=== PATIENT | female | born 1990 | race Caucasian/White ===

== ENCOUNTER 2024-06-21 07:27 | Inpatient (IN) ==
[2024-06-21] MEDS ORDERED: LIDOCAINE 1% LOCAL 20 ML VIAL INFIL PRN (07:29)
[2024-06-21] MEDS ORDERED: VANCOMYCIN HCL 1,000 MG/270 ML BAG IV STA (07:29)
[2024-06-21] MEDS ORDERED: VANCOMYCIN CONSULT ACTIVE PRN (07:29)
[2024-06-21] MEDS ORDERED: Patient's HEIGHT &/or WEIGHT Needed SCH (08:15)
[2024-06-21] MEDS: LACTATED RINGER'S 1,000 ML IV PRN (08:17)
[2024-06-21 08:21] LABS: Hematocrit (blood only) 34.6 % (37.0-47.0); Hemoglobin 11.4 g/dl (12.0-16.0); Mean Corpuscular Hemoglobin 27.7 pg (25.0-34.0); Mean Corpuscular Hgb Conc 32.9 g/dL (32.0-36.0); Mean Platelet Volume 9.9 fL (9.4-12.4); Platelet Count 300 K/uL (130-400); RDW Standard Deviation 42.8 fL (36.4-46.3); Red Blood Count 4.12 M/uL (4.20-5.40); White Blood Count 8.61 K/ul (4.8-10.8)
[2024-06-21] MEDS: OXYTOCIN 30 UNITS/NSS 30 UNITS/500 ML BAG IV PRN (08:30)
--- NOTE | 2024-06-21 09:24 | History & Physical Report ---
Date of Service June 21, 2024 Assessment & Plan (1) Supervision of normal intrauterine in multigravida: Plan: Intrauterine at 39 0/7 weeks for induction electively. Prior injections have been done because of preeclampsia. Blood pressures have been normal this . Will begin Pitocin per labor and delivery protocol for induction. Vancomycin will be used for GBS prophylaxis. Epidural and requested. Anticipate vaginal . Admission and Anticipated Discharge Date Admission Date: June 21, 2024 History of Present Illness Primary Care Provider: NO PCP Patient is a 33-year-old 3 para 2-0-0-2 female EDC of 06/28/2024 who presents at 39-0/7 weeks for induction of labor. is uncomplicated. Both prior pregnancies were induced at 39 weeks. GBS is positive. Allergies Allergy/AdvReac Type Severity Reaction Status Date / Time amoxicillin Allergy Intermediate Hives Verified 06/18/24 13:51 cephalexin [From Keflex] Allergy Verified 06/18/24 13:51 Penicillins Allergy Verified 06/18/24 13:51 Home Medications Medication Instructions Recorded Confirmed Type PNV [id number] PO 11/19/23 06/18/24 History [ Gummies] Patient History Medical History PIH ( induced hypertension) Anxiety History of chicken pox Surgical History S/P wisdom tooth extraction Family History Father Hypertension Denies family history of Ovarian cancer Breast cancer Colorectal cancer Social History Smoking Status: Never smoker Do You Dip or Chew Tobacco: No; Hx Alcohol Use: No Hx Substance Use: No Beliefs That Will Affect Care: None marital status: marital status details: Bruce Wright(29) [phone] Current Living Situation: Family Current Living Situation Comment: lives with spouse, 2 children, cats-spouse changing litter current occupational status: employed current occupation: teacher-[employer] Other Information That Helps Us Care for You: No Feels Safe at Home: Yes Safety Concerns: Feels Safe At This Time Assistive Devices: None Review of Systems All systems reviewed & are unremarkable except as noted in HPI & below Physical Exam Constitutional: WD/WN, vitals as above Psychiatric: A+Ox3, euthymic affect Genitourinary: OB Exam Abdomen: + vertex, + estimated weight (7-8 pounds) and + irregular contractions Manual OB Exam: + cervical dilation fingertip, + cervical effacement 60% (soft) and + station -2 OB Exam Monitor Tracing: + external FHT monitor used, + external uterine monitor used, + category I and + normal FHT variability After verbal consent was obtained, a speculum was placed vaginally and the cervix visualized. A Serna catheter was then inserted into the cervix to the level of the internal os. 40 cc of water was then instilled into the balloon. The speculum was then removed and the catheter secured to her left thigh under traction. Patient tolerated procedure well. Results & Data Vital Signs (Past 12 Hours) Vital Signs Temp Pulse Resp BP 06/21/24 07:38 99.0 F 18 06/21/24 07:34 99.0 F 118 H 18 137/80 Coding Level of Care Code 16361 INT INP/OBS CARE 1/40MIN Diagnoses Supervision of normal intrauterine in multigravida Z34.80 CPT Codes Misx Procedure Codes - 27120 Placement of cervical dilator: 76971 Placement of cervical dilator ([id number])
[2024-06-21] MEDS: VANCOMYCIN HCL 1,500 MG in SODIUM CHLORIDE 0.9% 500 ML IV STA (09:26)
[2024-06-21] MEDS ORDERED: Nursing to Pharmacy Communication SCH (12:15)
[2024-06-21] MEDS: fentANYL 2 MCG/ML BUPIVacaine 0.125%-NSS 100ML BAG ONE (17:33)
[2024-06-21] MEDS ORDERED: NALOXONE HCL 1 MG in SODIUM CHLORIDE 0.9% 1,000 ML IV PRN (17:38)
[2024-06-21] MEDS: SODIUM CHLORIDE 0.9% PF INJ 10 ML VIAL ONE (17:38)
[2024-06-21] MEDS ORDERED: BUPIVACAINE 0.25% PF 30 ML VIAL EPI PRN (17:38)
[2024-06-21] MEDS ORDERED: LIDOCAINE 2% MPF LOCAL 5 ML VIAL EPI PRN (17:38)
[2024-06-21] MEDS ORDERED: fentaNYL citrate PF 100 MCG/2 ML VIAL EPI PRN (17:38)
[2024-06-21] MEDS ORDERED: SODIUM CHLORIDE 0.9% PF INJ 10 ML VIAL EPI PRN (17:38)
[2024-06-21] MEDS ORDERED: ROPIVACAINE 0.5% PF 5 MG/ML 20 ML VIAL EPI PRN (17:38)
[2024-06-21] MEDS ORDERED: NALBUPHINE HCL INJ 10 MG/ML AMP IV PRN (17:38)
[2024-06-21] MEDS: LIDOCAINE 2%/EPINEPHRINE 1:200,000 20 ML PF ONE (17:38)
[2024-06-21] MEDS ORDERED: ONDANSETRON INJ 2 MG/ML 2 ML VIAL IV PRN (17:38)
[2024-06-21] MEDS ORDERED: NALOXONE HCL 0.4 MG/1 ML VIAL/CARP IV PRN (17:38)
[2024-06-21] MEDS: BUPIVACAINE 0.25% PF 30 ML VIAL ONE (17:38)
[2024-06-21] MEDS ORDERED: PROMETHAZINE 6.25 MG/50.25 ML BAG IV PRN (17:38)
[2024-06-21] MEDS ORDERED: ePHEDrine sulfate 50 MG/ML AMP IV PRN (17:38)
[2024-06-21] MEDS: fentaNYL citrate PF 100 MCG/2 ML VIAL ONE (17:39)
[2024-06-21] MEDS: BUPIVACAINE 0.25% PF 30 ML VIAL EPI STA (17:48)
[2024-06-21] MEDS: fentaNYL citrate PF 100 MCG/2 ML VIAL EPI STA (17:48)
[2024-06-21] MEDS: LIDOCAINE 2%/EPINEPHRINE 1:200,000 20 ML PF EPI STA (17:48)
[2024-06-21] MEDS: SODIUM CHLORIDE 0.9% PF INJ 10 ML VIAL EPI STA (17:48)
[2024-06-21] MEDS ORDERED: VANCOMYCIN HCL 1,000 MG/270 ML BAG IV PRN (18:29)
[2024-06-21] MEDS ORDERED: VANCOMYCIN HCL 1,250 MG in SODIUM CHLORIDE 0.9% 250 ML IV SCH (18:30)
[2024-06-21] MEDS: ePHEDrine sulfate 50 MG/ML AMP ONE (21:27)
[2024-06-21] MEDS: VANCOMYCIN HCL 1,250 MG in SODIUM CHLORIDE 0.9% 250 ML IV PRN (21:40)
[2024-06-22] MEDS: fentANYL 2 MCG/ML BUPIVacaine 0.125%-NSS 100ML BAG EPI PRN (00:42)
[2024-06-22] MEDS: diphenhydrAMINE 50 MG/ML VIAL IV PRN (00:45)
[2024-06-22] MEDS: OXYTOCIN 30 UNITS/NSS 30 UNITS/500 ML BAG IV PRN (03:25)
[2024-06-22] MEDS ORDERED: OXYTOCIN 30 UNITS/NSS 30 UNITS/500 ML BAG IV PRN (03:28)
[2024-06-22] MEDS ORDERED: oxyCODONE/ACETAMINOPHEN 5mg/325mg TAB PO PRN (03:28)
[2024-06-22] MEDS ORDERED: HYDROCORTISONE ACETATE 25 MG SUPP PR PRN (03:28)
--- NOTE | 2024-06-22 03:32 | Delivery Summary ---
Vaginal Delivery Summary Date of Service June 22, 2024 Vaginal Delivery Summary and 1st Degree LAC Patient is a 33-year-old 3 para 2-0-0-2 female who presented at 39 weeks for elective induction of labor. The induction was begun with a cervical balloon and Pitocin per labor and delivery protocol. After the balloon was expelled, membranes were ruptured for clear fluid. She received effective epidural analgesia. She progressed to full dilation and pushed effectively over intact perineum for delivery of a viable female . After the head was delivered the left hand then delivered which was posterior. The infant was then delivered without maternal effort. She was placed on the mother's abdomen for further attention and drying. She was vigorous crying and moving all 4 limbs. After 1 minute, the cord was clamped and cut. After cord blood was obtained, th e placenta was expressed intact with a three-vessel cord. bleeding was controlled with dilute Pitocin and fundal massage. A first-degree perineal laceration was repaired with 3-0 chromic in usual fashion. QBL was 400 mL. Mother and were doing well after delivery. [facility] [place] Vaginal Delivery Charge Delivery Type Details: and 1st Degree LAC
[2024-06-22] MEDS: IBUPROFEN 600 MG TAB PO PRN (03:56)
[2024-06-22] MEDS: DIPHTHER/TETAN/PERTUS Vaccine (Tdap, Adol/Adult) 0.5mL IM ONE (05:04)
--- NOTE | 2024-06-22 05:54 | Anesthesia Procedure Note ---
Date of Service June 22, 2024 Anesthesia Post Epidural Note Vital Signs Vital Signs: Temp Pulse Resp BP Pulse Ox 37.2 C 102 H 18 108/55 L 77 L 06/22/24 05:20 06/22/24 05:18 06/22/24 05:20 06/22/24 05:18 06/22/24 03:09 Notes Mental Status: alert / awake / arousable Nausea / Vomiting: adequately controlled Pain: adequately controlled Airway Patency, RR, SpO2: stable & adequate BP & HR: stable & adequate Hydration State: stable & adequate Neuraxial Anesthesia: was administered and sensory block is resolving Anesthetic Complications: no major complications apparent and Pt Satisfied with anesthetic care Epidural: Removed without complications and With tip intact
[2024-06-22] MEDS: BENZOCAINE 20% SPRY 85 APPLN/85 GM CAN EXT PRN (06:33)
[2024-06-22] MEDS: PRENATAL VITAMIN 1 TAB PO SCH (08:48)
[2024-06-22] MEDS: DOCUSATE SODIUM 100 MG CAP PO SCH (08:48)
[2024-06-22 21:16] VITALS: RESP 18
[2024-06-23 02:32] VITALS: O2SAT 98
[2024-06-23 06:46] LABS: Hematocrit (blood only) 30.5 % (37.0-47.0); Hemoglobin 10.2 g/dl (12.0-16.0); Mean Corpuscular Hemoglobin 28.2 pg (25.0-34.0); Mean Corpuscular Hgb Conc 33.4 g/dL (32.0-36.0); Mean Corpuscular Volume 84.3 fL (80.0-100.0); Mean Platelet Volume 10.2 fL (9.4-12.4); Platelet Count 248 K/uL (130-400); RDW Coefficient of Variation 14.2 % (11.5-14.5); RDW Standard Deviation 43.7 fL (36.4-46.3); Red Blood Count 3.62 M/uL (4.20-5.40); White Blood Count 13.36 K/ul (4.8-10.8)
--- NOTE | 2024-06-23 07:29 | Obstetrical Progress Note ---
Date of Service <Diya Dennis MD - Last Filed: 06/23/24 07:59> June 23, 2024 Assessment & Plan <Diya Dennis MD - Last Filed: 06/23/24 07:59> (1) care and examination: PPD1 s/p at 39+ wga: Stable. Rh+, gbs neg, ri, vitals & H/H noted Continue routine care, OOB and ambulation, diet as tolerated Plan for DC later today <Eagle Bolton MD - Last Filed: 06/24/24 16:00> (1) care and examination: Subjective <Diya Dennis MD - Last Filed: 06/23/24 07:59> Patient is a 33yo who is PPD#1 following at 39+ weeks. Abd pain/cramping minimal, well managed on analgesics Voiding w/o issue Tolerating meals Ambulating normally Having appropriate lochia Planning to breastfeed. Constitutional: no fever, no chills or no sweats Respiratory: no dyspnea Cardiovascular: no chest pain, no palpitations or no calf pain Breast: no breast pain Gastrointestinal: no nausea or no vomiting Genitourinary (female): no dysuria Neurologic: no headache(s) no changes in vision, no headaches Physical Exam <Diya Dennis MD - Last Filed: 06/23/24 07:59> General: Alert, oriented. No acute distress. Cardiac: Regular rate and rhythm, no murmurs, rubs, or gallops. Respiratory: Clear to auscultation bilaterally. No increased work of breathing. Symmetrical chest rise. No respiratory distress. Abdomen: Soft, nontender, nondistended. Bowel sounds present. Uterus: Uterine fundus firm, nontender Lower extremities: No lower extremity edema or swelling. No deep calf pain. Results & Data <Diya Dennis MD - Last Filed: 06/23/24 07:59> Vital Signs (Past 12 Hours) Vital Signs Temp Pulse Resp BP Pulse Ox O2 Del Method 06/23/24 01:00 36.6 C 75 18 101/68 98 Room Air 06/22/24 20:30 36.5 C 90 18 121/77 96 Room Air Laboratory Results 06/23/24 06:03 Supervising Physician <Eagle Bolton MD - Last Filed: 06/24/24 16:00> Co-Signing Physician Notes Patient seen with resident and agree with above findings and plan. Stable for discharge Resident Activity Tracking <Diya Dennis MD - Last Filed: 06/23/24 07:59> Resident Involvement: Resident Care Provided Care Provided: Adult Hospital Medicine
[2024-06-23] MEDS: ACETAMINOPHEN 325 MG TAB PO PRN (08:01)
[2024-06-23 08:48] VITALS: BP 109/71; PULSE 78; TEMP 97.3
[2024-06-23] MEDS ORDERED: bisacodyL 5 MG TABEC PO SCH (20:00)
[2024-06-24] MEDS ORDERED: bisacodyL 10 MG SUPP PR PRN
== END 2024-06-23 11:00 | disposition home or self-care (01) | DRG 807 ==
LOC: 4S1 07:27 → 4E2 06-22 05:46